=== PATIENT | female | born 1955 | race Caucasian/White ===

== ENCOUNTER 2025-01-14 19:57 | Inpatient (IN) | payer OTHER ==
[~2025-01-14] VITALS: Ht 162.6 cm; Wt 77.3 kg
[2025-01-14 20:30] LABS: BASOPHILS # (AUTO) 0.1 X10'3 (0-0.2); BASOPHILS % (AUTO) 1.3 % (0-1); EOSINOPHILS # (AUTO) 0.1 X10'3 (0-0.9); HEMATOCRIT 36.2 % (35.0-45.0); LYMPHOCYTES # (AUTO) 1.9 X10'3 (1.1-4.8); LYMPHOCYTES % (AUTO) 22.6 % (21-51); MEAN CORPUSCULAR HEMOGLOBIN 28.8 PG (27.0-31.0); MEAN CORPUSCULAR HGB CONC 33.1 g/dL (33.0-36.5); MEAN CORPUSCULAR VOLUME 86.9 FL (78-98); MEAN PLATELET VOLUME 7.1 FL (7.4-10.4); MONOCYTES % (AUTO) 11.9 % (2-12); NEUTROPHILS # (AUTO) 5.3 X10'3 (1.8-7.7); NEUTROPHILS % (AUTO) 63.2 % (42-75); PLATELET COUNT 532 X10'3 (140-440); RED BLOOD COUNT 4.17 X10'6 (4.20-5.60); WHITE BLOOD COUNT 8.4 X10'3 (4.5-11.0)
[2025-01-14 20:40] LABS: ALANINE AMINOTRANSFERASE 53 U/L (12-78); ALBUMIN 2.9 G/DL (3.4-5.0); ALBUMIN/GLOBULIN RATIO 0.6 (1.1-1.5); ALKALINE PHOSPHATASE 90 IU/L (46-116); ANION GAP 8 (8-16); ASPARTATE AMINO TRANSFERASE 33 U/L (10-37); BILIRUBIN,TOTAL 0.5 MG/DL (0.1-1.0); BLOOD UREA NITROGEN 9 MG/DL (7-18); BUN/CREATININE RATIO 10.8 (10.0-20.0); CHLORIDE 101 MMOL/L (99-107); CREATININE 0.83 MG/DL (0.40-0.90); GLUCOSE 111 MG/DL (70-104); LIPASE 46 U/L (16-77); POTASSIUM 3.7 MMOL/L (3.5-5.1); SODIUM 135 MMOL/L (135-145); TOTAL CARBON DIOXIDE 26.2 MMOL/L (24-32); TOTAL PROTEIN 7.4 G/DL (6.4-8.2); eCRCL 55 ML/MIN; eGFR 68 ML/MIN
--- NOTE | 2025-01-14 20:45 | Physician Documentation ---
History of Present Illness Chief Complaint: Abdominal Pain Stated Complaint: GALLBLADDER ISSUES Time Seen by MD: 20:36 OK to notify your PCP?: Yes Source: patient, RN/MD, RN notes reviewed, old records Mode of Arrival: POV Exam Limitations: no limitations HPI 69 year old female presents to the emergency department for complaints of abdominal pain that has been present since 12/24/2024. Patient states that the pain is in the lower left abdominal quadrant. She endorses intermittent nausea and vomiting from 12/24-12/28 as well as avoidance eating. Patient states that her pain is constant and non radiating and states that it is an /10. She states that her stools have been abnormal but denies any black or bloody stools. She denies any drinking. Patient denies any other associated symptoms at this time. Patient denies any other alleviating or exacerbating factors. Medication Reconciliation Allergies: Coded Allergies: No Known Allergies (Unverified , 01/14/25) Miscellaneous Medications Home Med List (No Home Medications), (Reported) Past Medical History Past Medical History: No Pertinent History Past Surgical History: tubal ligation Smoking Status: Never smoker Alcohol Use: Occasionally Drug Use: none Review of Systems All Other Systems at this time: Reviewed and Negative ROS As stated above in the HPI, otherwise all systems are reviewed and negative. Physical Exam Vital Signs: RN Vital Signs have been reviewed: Yes, Temperature: 97.8, Source: Oral, Heart Rate: 98, Respiratory Rate: 15, BP: 145/77, Pulse Oximetry: 97, Weight: 77.270 Pulse Oximetry Reflects: adequate oxygenation Physical Exam General: The patient is well developed, well nourished, nontoxic appearing and is in no acute distress. Skin: [place], warm and dry with no rashes. HEENT: Head was normocephalic and atraumatic. Eyes - pupils equal, round, reactive to light and accommodation. Extraocular movements were intact. Conjunctivae were nonicteric. Ears - bilateral tympanic membranes were normal. The mouth and oropharynx were clear with moist mucous membranes. There were no pharyngeal exudates or erythema. Neck: Supple and nontender. There was no jugular venous distention, lymphadenopathy, thyromegaly or masses. Chest: Clear to auscultation bilaterally without wheezes, rales or rhonchi. No accessory muscle use. No dullness to percussion. Heart: Rate regular and rhythmic. S1, S2. No murmurs. Palpation of the chest wall was normal. No rubs or thrills. Abdomen: Left lower quadrant pain and RUQ pain. Positive bowel sounds. No guarding or rebound. No hepatosplenomegaly or palpable masses. Extremities: No cyanosis, clubbing or edema. The patient moves all extremities. Pulses were equal and symmetric. Neurologic: Cranial nerves II-XII were intact. Sensation was intact to light touch throughout. Motor strength was 5/5 in all four extremities. Deep tendon reflexes were intact in both upper and lower extremities. Psychologic: The patient was oriented to person, place and time. The patient demonstrated appropriate judgement and insight. Progress Progress Note 0102: The case was discussed with Dr. Blank who kindly agreed to admission of the patient. 0106: A message was left with Dr. Lo regarding the patient. Results/Orders Reviewed/noted all lab results: Yes Results/Orders Orders - MAGDI CATHERINE MD Urinalysis, Cult If Indicated (01/14/25 20:02) Completed Orders - MAGDI CATHERINE MD Cbc/Diff (01/14/25 20:02) BMP (01/14/25 20:02) Lipase (01/14/25 20:02) CMP (01/14/25 20:02) Vital Signs 01/14/25 19:58 Temp 97.8 Pulse 98 Resp 15 B/P (MAP) 145/77 Pulse Ox 97 Laboratory Tests Test 01/14/25 20:18 White Blood Count 8.4 Red Blood Count 4.17 L Hemoglobin 12.0 Hematocrit 36.2 Mean Corpuscular Volume 86.9 Mean Corpuscular Hemoglobin 28.8 Mean Corpuscular Hemoglobin Concent 33.1 Red Cell Distribution Width 13.0 Platelet Count 532 H Mean Platelet Volume 7.1 L Neutrophils (%) (Auto) 63.2 Lymphocytes (%) (Auto) 22.6 Monocytes (%) (Auto) 11.9 Eosinophils (%) (Auto) 1.0 Basophils (%) (Auto) 1.3 H Neutrophils # (Auto) 5.3 Lymphocytes # (Auto) 1.9 Monocytes # (Auto) 1.0 H Eosinophils # (Auto) 0.1 Basophils # (Auto) 0.1 CBC Comment Sodium Level 135 Potassium Level 3.7 Chloride Level 101 Carbon Dioxide Level 26.2 Anion Gap 8 Blood Urea Nitrogen 9 Creatinine 0.83 Estimated GFR/1.73 m2 68 BUN/Creatinine Ratio 10.8 Glucose Level 111 H Calcium Level 9.0 Total Bilirubin 0.5 Aspartate Amino Transf (AST/SGOT) 33 Alanine Aminotransferase (ALT/SGPT) 53 Alkaline Phosphatase 90 Total Protein 7.4 Albumin 2.9 L Globulin 4.5 H Albumin/Globulin Ratio 0.6 L Lipase 46 Chemistry Comments Re-Evaluation Re-Evaluation : Re-Evaluation: Worsened Progress Patient was seen and examined. Patient was given reassurance. Laboratory work was obtained. Ultrasound was obtained which did not show any gallstones which was reassuring however cat scan showed some significant abnormalities including the possibility of early so abcd muscle abscess. Patient's kidney is looking very poorly with poor circulation and severe hydro with stranding. Patient was then given Rocephin and vancomycin as well as pain meds and additional fluid boluses for sepsis. Patient has pyelonephritis and obstructive uropathy with a positive UTI as well. Laboratory work WBC shows normal value at 8.4 hemoglobin hematocrit 12 and 36 platelets elevated at 532. Chemistry within normal limits. Lipase also within normal limits. Patient urinalysis shows a specific gravity of 1.005 with leukocyte esterase large with WBCs TNTC and 1+ bacteria. Urology was then consulted with these critical findings. Patient will go to surgery at noon tomorrow she was NPO overnight. Continuous monitoring manager interpretation shows normal sinus rhythm heart rate 90s, no ectopy, normal, my interpretation. Pulse oximetry monitor interpretation shows normal oxygenation 98% room air, normal, my interpretation. EKG/XRAY/CT/US/VASC/MRI CT : Impression Clinical History LEFT SIDED ABD/FLANK PAIN Comparison US ABD on 01/14/2025, 190 images. Technique: All CT scans at this medical facility are performed using dose modulation techniques as appropriate to a performed exam including the following: Automated exposure control was utilized; adjustment of the mA and/or kV according to patient size; and use of iterative reconstruction technique. All CT studies are reported to the Dose Index Registry of the [employer]. Contrast: omni 300 100ml Radiation Dose: CTDI (mGy): 21.75; DLP (mGy-cm): 1159.45 TRUDI FARR, [id number] FINDINGS: LUNG BASES: Unremarkable LIVER: Unremarkable GALLBLADDER: Unremarkable PANCREAS: Unremarkable SPLEEN: Unremarkable ADRENAL GLANDS: 2 cm hypodense left adrenal lesion measuring 2 cm in size KIDNEYS: Atrophic left kidney demonstrates multiple fluid collections as well as multiple calcific foci, associated with extensive left perinephric fat stranding. There is an obstructive 1.1 x 1.4 x 0.9 cm left UVJ stone, causing moderate left hydronephrosis. Adjacent left psoas muscle demonstrates abnormal enhancement with heterogeneous hypodense pockets, suspicious for left psoas abscess. AORTA: Unremarkable INFERIOR VENA CAVA: Unremarkable LYMPH NODES: Unremarkable STOMACH: Unremarkable SMALL INTESTINE: Unremarkable APPENDIX: Not visualized. 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 SUPERFICIAL SOFT TISSUES: Unremarkable OTHER: No other acute findings. IMPRESSION: Atrophic left kidney demonstrates obstructive left UVJ stone causing moderate left hydronephrosis. Left renal constipation compatible with nonobstructive left renal stones. There is likely left pyonephrosis with extensive left perinephric fat stranding as well as adjacent left psoas abscess. 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 This report was electronically signed by Harley Carey MD on 01/15/2025 12:11:07 AM. Electronically Signed by:HARLEY CAREY MD Date & Time: 01/15/2513 Dictated by: HARLEY CAREY MD Dictation date and time: 01/15/2513 Ultrasound : Impression INDICATION: upper abdominal pain TECHNIQUE: Multiple real-time sonographic images of the abdomen were obtained. COMPARISON: None FINDINGS: Parenchymal changes consistent with steatosis The liver measures 17.93 cm. No intrahepatic biliary ductal dilatation is noted. The gallbladder wall measures 0.2 cm and is unremarkable. No gallstones or sludge is seen. The common duct measures 0.38 cm and is unremarkable. No pericholecystic fluid is noted. Negative sonographic Rush's sign. The right kidney measures 11.61 cm. No hydronephrosis. The pancreas is not well visualized due to obscuration from bowel gas. The visualized portions of the IVC and aorta are grossly unremarkable. IMPRESSION: 1. Normal exam of the abdomen. 2. 17.9 cm liver with changes of steatosis 3. Normal gallbladder 4. Normal right kidney Electronically Signed by:DESTINY SANFORD Jr., DO Date & Time: 01/14/252201 Medical Decision Making Additional info obtained from: old records Differential Dx:Considerations: Include: Aortic dissection, Appendicitis, Bowel obstruction, Cholangitis, Cholelithasis, Constipation, Esophagitis, Gastritis/PUD, Gastroenteritis, GI hemorrhage, Hernia, Hepatitis, Inflammatory BD, Ischemic bowel, Ovarian cyst/torsion, Pancreatitis, PID, Urinary tract infection, Urolithiasis, Other Departure Time of Disposition: 01:02 Disposition: 09 ADMITTED INPATIENT Admitted to Inpatient Unit: yes, to hospitalist Admission Level of Care: Med/Surg with Tele Impression: Primary Impression: Pyelonephritis Additional Impressions: UTI (urinary tract infection) Qualified Codes: N30.00 - Acute cystitis without hematuria Obstructive uropathy Intractable renal colic Psoas abscess, left Condition: Fair Referrals: NO PRIMARY CARE PROVIDER (PCP) Education Educated: Patient Educated regarding: diagnosis, need for follow up Critical Care Note Total Time (mins): 30 Critical Care Note The very real possibility of a deterioration of this patient's condition required the highest level of my preparedness for sudden, emergent intervention. I provided critical care services, which included medication orders, frequent reevaluations of the patient's condition and response to treatment, ordering and reviewing test results, and discussing the case with various consultants. Excludes time spent performing separately billable procedures. The critical care time associated with the care of the patient was. 30 minutes or re-evaluating the patient frequently possible sepsis and need for emergent urological surgery. Signature Scribe Signature: Scribed for Magdi Catherine MD by Clint Metzger . 01/14/25 21:21 Attestation: The note accurately reflects work and decisions made by me.Magdi Catherine MD 01/14/25 20:45 MAGDI CATHERINE MD Jan 14, 2025 20:45 CLINT GUZMAN Jan 14, 2025 21:21
[2025-01-14] MEDS: normal saline 1000ML IV soln IVB ONE (20:59)
[2025-01-14] MEDS ORDERED: iohexol 300mg/ml 100ml inj. ONE (21:56)
[2025-01-14 22:03] LABS: BILIRUBIN,URINE NEGATIVE (Neg); CLARITY,URINE SLIGHTLY CLOUDY (Clear); COLOR,URINE YELLOW (Yellow); GLUCOSE, URINE NEGATIVE (Neg); KETONES,URINE NEGATIVE (Neg); LEUKOCYTE ESTERASE ,URINE LARGE (Neg); NITRITES, URINE NEGATIVE (Neg); OCCULT BLOOD,URINE TRACE-INTACT (Neg); PROTEIN,URINE NEGATIVE (Neg); UROBILINOGEN,URINE 0.2 E.U/dL (0.2-1.0)
--- NOTE | 2025-01-14 22:05 | RADIOLOGY REPORT ---
INDICATION: upper abdominal pain TECHNIQUE: Multiple real-time sonographic images of the abdomen were obtained. COMPARISON: None FINDINGS: Parenchymal changes consistent with steatosis The liver measures 17.93 cm. No intrahepatic biliary ductal dilatation is noted. The gallbladder wall measures 0.2 cm and is unremarkable. No gallstones or sludge is seen. The com mon duct measures 0.38 cm and is unremarkable. No pericholecystic fluid is noted. Negative sonographic Rush's sign. The right kidney measures 11.61 cm. No hydronephrosis. The pancreas is not well visualized due to obscuration from bowel gas. The visualized portions of the IVC and aorta are grossly unremarkable. IMPRESSION: 1. Normal exam of the abdomen. 2. 17.9 cm liver with changes of steatosis 3. Normal gallbladder 4. Normal right kidney
[2025-01-14 22:07] LABS: UA COLLECTION TYPE CLN CATCH MIDSTREAM
[2025-01-14 22:08] LABS: BACTERIA,URINE 1+ /HPF (Neg); MUCUS STRANDS NONE SEEN /LPF (Neg); RBC,URINE 0-2 /HPF (0-2); SQUAMOUS EPITHELIAL CELL,UR NONE SEEN /LPF (FEW); TRANSITIONAL EPI CELLS,URINE FEW /HPF; WBC CLUMPS,URINE MODERATE /HPF (NEGATIVE); WBC,URINE TNTC /HPF (0-4)
[2025-01-15] VITALS (14 sets, daily range): BP systolic 91–122; BP diastolic 41–61; PULSE 61–73; RESP 10–21; TEMP 97.1–98; O2SAT 88–99
[2025-01-15] MEDS: HYDROcodone/acetaminophen 10/325mg tab PO ONE ×2 (00:13→00:15)
--- NOTE | 2025-01-15 00:14 | RADIOLOGY REPORT ---
Clinical History LEFT SIDED ABD/FLANK PAIN Comparison US ABD on 01/14/2025, 190 images. Technique: All CT scans at this medical facility are performed using dose modulation techniques as appropriate t o a performed exam including the following: Automated exposure control was utilized; adjustment of th e mA and/or kV according to patient size; and use of iterative reconstruction technique. All CT studies are reported to the Dose Index Registry of the [employer]. Contrast: omni 300 100ml Radiation Dose: CTDI (mGy): 21.75; DLP (mGy-cm): 1159.45 TRUDI FARR, [id number] FINDINGS: LUNG BASES: Unremarkable LIVER: Unremarkable GALLBLADDER: Unremarkable PANCREAS: Unremarkable SPLEEN: Unremarkable ADRENAL GLANDS: 2 cm hypodense left adrenal lesion measuring 2 cm in size KIDNEYS: Atrophic left kidney demonstrates multiple fluid collections as well as multiple calcific fo ci, associated with extensive left perinephric fat stranding. There is an obstructive 1.1 x 1.4 x 0. 9 cm left UVJ stone, causing moderate left hydronephrosis. Adjacent left psoas muscle demonstrates a bnormal enhancement with heterogeneous hypodense pockets, suspicious for left psoas abscess. AORTA: Unremarkable INFERIOR VENA CAVA: Unremarkable LYMPH NODES: Unremarkable STOMACH: Unremarkable SMALL INTESTINE: Unremarkable APPENDIX: Not visualized. COLON: Unremarkable BLADDER: Unremarkable RECTUM: Unremarkable SKELETAL: Degenerative disc disease of lower thoracic spine as well as lumbar spine. SUPERFICIAL SOFT TISSUES: Unremarkable OTHER: No other acute findings. IMPRESSION: Atrophic left kidney demonstrates obstructive left UVJ stone causing moderate left hydronephrosis. L eft renal constipation compatible with nonobstructive left renal stones. There is likely left pyonep hrosis with extensive left perinephric fat stranding as well as adjacent left psoas abscess. 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 This report was electronically signed by Suhail Guajardo MD on 01/15/2025 12:11:07 AM.
[2025-01-15] MEDS ORDERED: NO HOME MEDS (01:19)
[2025-01-15] MEDS: normal saline 1000ML IV soln IV ONE (01:56)
[2025-01-15] MEDS: CefTRIAXone 2gm/D5W 50ml BAG 50 ML IV ONE (01:56)
--- NOTE | 2025-01-15 02:35 | HISTORY AND PHYSICAL ---
History & Physical - Short Providers to Admitted with abdominal pain and a workup shows possible pyelonephritis~ History of Present Illness Chief Complain & History History is mostly obtained from chart and personal communication from the ED physician. Laboratory data reviewed. Radiological investigations reviewed. IMPRESSION: Atrophic left kidney demonstrates obstructive left UVJ stone causing moderate left hydronephrosis. Left renal 'constipation' [error?]compatible with nonobstructive left renal stones. There is likely left pyonephrosis with extensive left perinephric fat stranding as well as adjacent left psoas abscess. Allergies: Coded Allergies: No Known Allergies (Unverified , 01/14/25) Home Medications Home Medications Active Reported No Home Medications (Home Med List) Each Exam Last recorded Lab results: 01/14/25201701/14/252017 Vitals: Vital Signs Date Time Temp Pulse Resp B/P (MAP) Pulse Ox O2 Delivery O2 Flow Rate FiO2 01/15/25 01:18 76 15 122/67 (85) 94 0 01/14/25 19:58 97.8 Advance Care Planning Advanced Care planning: N/A Problem\Assessment\Plan Additional Plan 1. Possible pyelonephritis 2. Sepsis 3.Atrophied left kidney with stone as documented above causing hydronephrosis [Atrophied kidney and hydronephrosis seems like it contradiction] Plan 1. Broad-spectrum antibiotics DOSES- GIVE IN ED 2. Gentle hydration 3. Follow-up cultures 4. Urology involvement required 5. Best course of action would be to get a renal scan MAG3 if no function confirmed left kidney may be considered for left nephrectomy or if there is decent function conservative measures like percutaneous nephrostomy followed by stent placement or a direct DJ stent placement need to be considered KINA MACHADO MD Jan 15, 2025 02:35
[2025-01-15] MEDS ORDERED: acetaminophen 325mg tablet PO PRN (02:40)
[2025-01-15] MEDS ORDERED: magnesium sulf-water 2g/50mL 50 ML IV PRN (02:40)
[2025-01-15] MEDS ORDERED: magnesium sulf-water 4G/100mL 100 ML IV PRN (02:40)
[2025-01-15] MEDS ORDERED: mag hydrox/Alum hydrox/simeth 30ml oral suspension PO PRN (02:40)
[2025-01-15] MEDS ORDERED: potassium Cl 40MEQ/1/2NS 520ml 520 ML IV PRN (02:40)
[2025-01-15] MEDS ORDERED: magnesium hydroxide 30ml (MOM) UD suspension PO PRN (02:40)
[2025-01-15] MEDS ORDERED: ondansetron/PF 4mg/2ml inj IV PRN ×2 (02:40→13:40)
[2025-01-15] MEDS: vancomycin/NS 1 GM ADD-VANTAGE 250 ML IV ONE (02:49)
[2025-01-15 03:20] LABS: MAGNESIUM 1.9 MG/DL (1.5-2.4); POTASSIUM 3.4 MMOL/L (3.5-5.1)
[2025-01-15] MEDS: ringers solution, lacted 1,000 ML IV ONE (04:42)
[2025-01-15] MEDS: enoxaparin 40mg/0.4ml syringe SUBCUT SCH (08:00)
[2025-01-15] MEDS: docusate sod 100mg capsule PO SCH (08:00)
[2025-01-15] MEDS ORDERED: iohexol 300 MG/1 ML 50ml polymer ONE (09:32)
[2025-01-15] MEDS: CefTRIAXone/D5W-Rocephin 1gm 50 ML IV SCH (11:33)
[2025-01-15] MEDS ORDERED: fentaNYL/PF 50MCG/1 ML 2ML syringe ONE (13:35)
[2025-01-15] MEDS ORDERED: dexamethasone sod phosphate 4mg/ml inj. ONE (13:36)
[2025-01-15] MEDS ORDERED: LIDOcaine 2% (20mg/ml) 5ml vial ONE (13:36)
[2025-01-15] MEDS ORDERED: midazolam 1 mg/ML 2ml injection ONE (13:36)
[2025-01-15] MEDS ORDERED: propofol inj 20 ML IV ONE (13:36)
[2025-01-15] MEDS ORDERED: ondansetron/PF 4mg/2ml inj ONE (13:36)
[2025-01-15] MEDS ORDERED: desflurane 240ml liquid inh. IH ONE (13:37)
--- NOTE | 2025-01-15 13:38 | CONSULTATION REPORT ---
History of Present Illness Providers to CC ~ Refering MD: NONE History of Present Illness 69-year-old white female. Left flank pain complaints. CT demonstrates a left atrophic and cystic appearing kidney with dilation secondary to a 7 mm left proximal ureteral stone. Additional nonobstructing intrarenal stones are observed. The patient has urothelial enhancement and likely abscess formation versus extension from the renal pelvis into the left psoas muscle. Allergies: Coded Allergies: No Known Allergies (Unverified , 01/14/25) Home Medications Home Medications Active Reported No Home Medications (Home Med List) Each Past Medical History Medical History Comment No genitourinary history Past Surgical History Surgical History Comment No genitourinary surgeries Past Family History Family History Comment Noncontributory Family History: Patient reports no known family medical history. Past Social History Social History Comment Noncontributory Physical Exam Last Vital Signs Recorded: RN Vital Signs have been reviewed: Yes, Temperature: 98.0, Source: Oral, Heart Rate: 65, Respiratory Rate: 16, BP: 105/54, Pulse Oximetry: 96, Weight: 77.270 General Appearance: alert, no apparent distress EENT: PERRL/EOMI Neck: normal inspection Respiratory: no respiratory distress Chest: no accessory muscle use Cardiovascular: normal peripheral pulses Gastrointestinal: normal palpation Rectal: deferred Back: no CVA tenderness Extremities: normal range of motion Neurologic: oriented x4 Psychiatric: normal mood/affect Skin: normal color, warm/dry Lymphatic: no adenopathy Review of Systems ROS ROS Comments: Negative twelve system review except as otherwise stated Results Diagram Lab Result Diagram: 01/14/25201701/15/25 0251 Assessment/Plan Problems/Diagnosis: (1) Ureteral stone with hydronephrosis Assessment & Plan: I recommended attempt at left retrograde pyelography with ureteral stent placement for management of her pyelonephritis with psoas abscess formation. I described the procedure in detail along with the risks, benefits, and alternatives. She agreed to proceed with such. KARYN HARRELL MD Jan 15, 2025 13:38
[2025-01-15] MEDS ORDERED: morphine 2 MG/ML inj. syringe IV PRN (13:40)
[2025-01-15] MEDS: ringers solution, lacted 1,000 ML IV SCH (13:40)
[2025-01-15] MEDS ORDERED: morphine 4 MG/ML inj SYRINge IV PRN (13:40)
[2025-01-15] MEDS ORDERED: labetalol 20mg/4ml (5mg/ml) syringe IV PRN (13:40)
[2025-01-15] MEDS ORDERED: fentaNYL/PF 50MCG/1 ML 2ML syringe IV PRN ×2 (13:40)
[2025-01-15] MEDS ORDERED: enalaprilat 1.25mg/ml 2ml vial IV PRN (13:40)
--- NOTE | 2025-01-15 14:14 | OPERATIVE REPORT ---
Operative Report Providers to ~ Date of Procedure: Jan 15, 2025 Pre-Operative Diagnosis: Left ureteral stone with obstruction Post-Operative Diagnosis SAME as PRE-Op Procedure Performed 1. Cystourethroscopy. 2. Left retrograde pyelography. 3. Left ureteral stone manipulation. 4. Fluoroscopy with interpretation less than 1 hour. 5. Left 6 [place] x 24 cm ureteral stent placement. Surgeon: Denver Harrell MD Early Childhood Coordinator None. Type of Anesthesia: General Findings: Fluoroscopic findings: Left retrograde pyelography demonstrated complete impaction of a radiopaque stone at the proximal ureter. Final images demonstrate proximal migration of this radio-opaque density and coiling of a ureteral stent within the upper pole of the kidney and within the bladder. Complications None. Estimated Blood Loss: None. Specimen Removed: None. Description of Procedure: The patient was under the effects of general anesthesia and in dorsal lithotomy with her genitals prepped and draped in sterile fashion. With a 21 Danish scope we entered the urethra and observe normal anatomy with orthotopic ureteral orifices. She had inflammatory bulla surrounding the left ureteral orifice. An open-ended catheter was used to cannulate the left orifice and retrograde pyelography demonstrated impaction at the proximal ureter due to a radio-opaque density. A wire was advanced up to the level of the stone but would not move proximal to the stone. The open-ended was advanced up to the level of the stone and used to gently push the stone which then migrated more proximally allowing our wire to enter into the upper tract. The open-ended catheter was offloaded and immediately pus poured out of the ureteral orifice. We then advanced a six Danish by 24 cm ureteral stent into the upper tract over the wire and deployed it within the upper pole of the kidney. Good coiling was observed proximally and distally following deployment. We then removed all instruments from her bladder marking the end of the procedure. X-Ray findings: No Foreign body DENVER HARRELL MD Jan 15, 2025 14:14
--- NOTE | 2025-01-15 18:01 | PROGRESS NOTE- Residence ---
Progress Note - Resident Providers to CC Resident Creating Document: DANIELLE LEBRON RES ~ Antibiotic Timeout Antibiotic Ordered?: Yes Subjective Patient was seen and examined at bedside, patient denied pain as she received pain management in the ED. no hematuria, other complications Objective Vital Signs Date Time Temp Pulse Resp B/P (MAP) Pulse Ox O2 Delivery O2 Flow Rate FiO2 01/15/25 15:10 64 15 103/54 (70) 99 Nasal Cannula 3.0 01/15/25 14:15 97.7 Result Diagram: 01/14/25201701/15/25 0251 Awake , alert, and oriented x4, resting comfortably in the bed, in no acute distress HEENT: Atraumatic, normocephalic, EOMI, anicteric sclera ; pink conjunctiva Neck: Trachea midline. Supple, full range of motion, no JVD Cardiac: Regular rhythm, regular rate with systolic murmurs all over the precordium. Respiratory: Equal breath sounds bilaterally, no tachypnea, no wheezing ,rub or rales, Chest wall is symmetric and without deformity. Gastrointestinal: Abdomen symmetric, non-distended, soft, non-tender, normal bowel sounds x4 quadrant, normoactive, no hepatosplenomegaly Musculoskeletal: No pedal edema, no cyanosis Neurological: Speech is clear, alert, and oriented x 4. No motor or sensory deficit, deep tendon reflexes normal, cerebellar intact. Cranial nerves II-XII intact. Skin: Warm and dry Advance Care Planning Advanced Care plannin - 30 Minutes Assessment Assessment A 69-year-old female presented to the flank pain, renal ultrasound confirmed left obstructing UVJ stone Plan Plan Possible pyelonephritis and sepsis Obstructive left UPJ stone with moderate left hydronephrosis Urinary tract infection Status post cystoscopy with retrograde pyelogram and stent placement CT abdomen demonstrates a left atrophic and cystic appearing kidney with dilation secondary to a 7 mm left proximal ureteral stone. Additional nonobstructing intrarenal stones are observed. The patient has urothelial enhancement and likely abscess formation versus extension from the renal pelvis into the left psoas muscle. UA showed: TNTC WBC and positive leukocyte esterase Urology Dr Lo was consulted, and patient underwent cystoscopy with retrograde pyelogram and stent placement today Continue Rocephin 1 g IV daily Continue NS at 100 cc/hour Management with [place]/morphine Code Status: Full code DVT Prophylaxis: Heparin SQ Analgesia/ Sedation: Morphine/nor Nutrition: Regular diet PT: Ordered Prognosis: Guarded Disposition: Possible discharge in 24/48 hours Danielle Lebron MD Internal Medicine Resident, PGY-1 Date of Service: Jan 15, 2025 Billing Provider: BASILIA DELACRUZ MD,DANIELLE, RES Jan 15, 2025 18:01
[2025-01-16 02:00] VITALS: BP 104/50; PULSE 64; RESP 15; TEMP 97.6; O2SAT 93
[2025-01-16 05:09] LABS: ALANINE AMINOTRANSFERASE 36 U/L (12-78); ALBUMIN 2.1 G/DL (3.4-5.0); ALBUMIN/GLOBULIN RATIO 0.5 (1.1-1.5); ALKALINE PHOSPHATASE 75 IU/L (46-116); ANION GAP 7 (8-16); ASPARTATE AMINO TRANSFERASE 18 U/L (10-37); BASOPHILS % (AUTO) 0.2 % (0-1); BILIRUBIN,TOTAL 0.3 MG/DL (0.1-1.0); BLOOD UREA NITROGEN 7 MG/DL (7-18); BUN/CREATININE RATIO 11.5 (10.0-20.0); CALCIUM 8.7 MG/DL (8.5-10.1); CHLORIDE 109 MMOL/L (99-107); CREATININE 0.61 MG/DL (0.40-0.90); EOSINOPHILS % (AUTO) 0 % (0-6); GLUCOSE 130 MG/DL (70-104); HEMATOCRIT 34.1 % (35.0-45.0); LYMPHOCYTES # (AUTO) 0.7 X10'3 (1.1-4.8); LYMPHOCYTES % (AUTO) 13.2 % (21-51); MAGNESIUM 2.1 MG/DL (1.5-2.4); MEAN CORPUSCULAR HEMOGLOBIN 27.7 PG (27.0-31.0); MEAN CORPUSCULAR HGB CONC 32.2 g/dL (33.0-36.5); MEAN PLATELET VOLUME 7.2 FL (7.4-10.4); MONOCYTES # (AUTO) 0.2 X10'3 (0-0.9); MONOCYTES % (AUTO) 4.9 % (2-12); NEUTROPHILS # (AUTO) 4.1 X10'3 (1.8-7.7); NEUTROPHILS % (AUTO) 81.7 % (42-75); PLATELET COUNT 501 X10'3 (140-440); POTASSIUM 4.1 MMOL/L (3.5-5.1); RED BLOOD COUNT 3.96 X10'6 (4.20-5.60); RED CELL DISTRIBUTION WIDTH 12.7 % (11.5-14.5); SODIUM 141 MMOL/L (135-145); TOTAL CARBON DIOXIDE 24.6 MMOL/L (24-32); TOTAL PROTEIN 6.2 G/DL (6.4-8.2); WHITE BLOOD COUNT 5.1 X10'3 (4.5-11.0); eCRCL 75 ML/MIN; eGFR > 90 ML/MIN
[2025-01-16 08:00] VITALS: RESP 18; O2SAT 93
[2025-01-16] MEDS: normal saline 1000ml 1,000 ML IV SCH (09:07)
[2025-01-16] MEDS ORDERED: CIPR-259 PO (13:57)
--- NOTE | 2025-01-16 21:06 | DISCHARGE SUMMARY-Residence ---
Discharge Summary Providers to CC Resident Creating Document: DANIELLE COELLO RES ~ Discharge Summary Admission Diagnosis: Left ureteral stone with obstruction Hospital Course DATE OF ADMISSION: 01/15/2025 DATE OF DISCHARGE: 01/16/2025 Discharge Diagnosis\Comment: Possible pyelonephritis and sepsis Obstructive left UPJ stone with moderate left hydronephrosis Urinary tract infection Status post cystoscopy with retrograde pyelogram and stent placement Operations\Procedures: Cystoscopy with retrograde pyelogram and stent placement Consultants: Urology Complications: None Condition on DC: Stable New Medications: Ciprofloxacin HCl (Cipro) 500 Mg Tablet 1 TAB PO Q12H for 7 Days, #14 TAB Discontinued Medications: Home Med List (No Home Medications) Each Discharge Summary: HPI as per admitting physician: History is mostly obtained from chart and personal communication from the ED physician. Laboratory data reviewed. Radiological investigations reviewed. Hospital Course: The patient was admitted with signs and symptoms concerning for pyelonephritis and sepsis in the setting of an obstructive left ureteropelvic junction stone with moderate hydronephrosis. Initial workup, including urinalysis, revealed TNTC WBCs and positive leukocyte esterase, supporting a diagnosis of urinary tract infection. CT abdomen demonstrated a 7 mm left proximal ureteral stone causing dilation and hydronephrosis, with findings suspicious for abscess formation or extension of infection into the left psoas muscle. The left kidney appeared atrophic and cystic with additional nonobstructing stones. Given the obstructive uropathy and possible ascending infection, Urology (Dr. Lo) was consulted. The patient underwent cystoscopy with retrograde pyelogram and left ureteral stent placement, which was well tolerated. Post- procedure, the patient remained hemodynamically stable. The patient was managed with IV Rocephin 1 g daily for infection coverage, IV fluids (NS at 100 cc/hr), and pain control with morphine and M[place]rack[place]. Heparin SQ was administered for DVT prophylaxis. The patient tolerated a regular diet, and physical therapy was ordered. The patient's overall prognosis remains guarded due to renal involvement and possible abscess formation. At the time of discharge, the patient was clinically improved and afebrile. Antibiotics were transitioned to oral ciprofloxacin, and outpatient follow-up with Dr. Lo (Urology) was arranged. Physical examination today: Awake , alert, and oriented x4, resting comfortably in the bed, in no acute distress HEENT: Atraumatic, normocephalic, EOMI, anicteric sclera ; pink conjunctiva Neck: Trachea midline. Supple, full range of motion, no JVD Cardiac: Regular rhythm, regular rate with systolic murmurs all over the precordium. Respiratory: Equal breath sounds bilaterally, no tachypnea, no wheezing ,rub or rales, Chest wall is symmetric and without deformity. Gastrointestinal: Abdomen symmetric, non-distended, soft, non-tender, normal bowel sounds x4 quadrant, normoactive, no hepatosplenomegaly Musculoskeletal: No pedal edema, no cyanosis Neurological: Speech is clear, alert, and oriented x 4. No motor or sensory deficit, deep tendon reflexes normal, cerebellar intact. Cranial nerves II-XII intact. Skin: Warm and dry Laboratory Tests Test 01/14/25 21:51 01/15/25 02:51 01/15/25 12:04 01/16/25 04:20 Urine Specimen Description Cln catch midstream Urine Color Yellow Urine Clarity Slightly cloudy Urine pH 6.0 Urine Specific [place] <=1.005 Urine Protein Negative mg/dl Urine Glucose (UA) Negative mg/dl Urine Ketones Negative mg/dl Urine Occult Blood Trace-intact Urine Nitrite Negative Urine Bilirubin Negative Urine Urobilinogen 0.2 E.U/dL Urine Leukocyte Esterase Large Urine RBC 0-2 /HPF Urine WBC Tntc /HPF Urine WBC Clumps Moderate /HPF Urine Squamous Epithelial Cells None seen /LPF Urine Transitional Epithelial Cells Few /HPF Urine Bacteria 1+ /HPF Urine Mucus None seen /LPF Urine Culture Indicated Indicated Volume Urine Centrifuged 10 ml Urine Comment Potassium Level 3.4 MMOL/L 4.1 MMOL/L Magnesium Level 1.9 MG/DL 2.1 MG/DL Lipase 180 U/L Glucometer 96 mg/dl White Blood Count 5.1 X10'3 Red Blood Count 3.96 X10'6 Hemoglobin 11.0 g/dl Hematocrit 34.1 % Mean Corpuscular Volume 86.0 FL Mean Corpuscular Hemoglobin 27.7 PG Mean Corpuscular Hemoglobin Concent 32.2 g/dL Red Cell Distribution Width 12.7 % Platelet Count 501 X10'3 Mean Platelet Volume 7.2 FL Neutrophils (%) (Auto) 81.7 % Lymphocytes (%) (Auto) 13.2 % Monocytes (%) (Auto) 4.9 % Eosinophils (%) (Auto) 0 % Basophils (%) (Auto) 0.2 % Neutrophils # (Auto) 4.1 X10'3 Lymphocytes # (Auto) 0.7 X10'3 Monocytes # (Auto) 0.2 X10'3 Eosinophils # (Auto) 0.0 X10'3 Basophils # (Auto) 0.0 X10'3 CBC Comment Sodium Level 141 MMOL/L Chloride Level 109 MMOL/L Carbon Dioxide Level 24.6 MMOL/L Anion Gap 7 Blood Urea Nitrogen 7 MG/DL Creatinine 0.61 MG/DL Estimated GFR/1.73 m2 > 90 ML/MIN BUN/Creatinine Ratio 11.5 Glucose Level 130 MG/DL Calcium Level 8.7 MG/DL Total Bilirubin 0.3 MG/DL Aspartate Amino Transf (AST/SGOT) 18 U/L Alanine Aminotransferase (ALT/SGPT) 36 U/L Alkaline Phosphatase 75 IU/L Total Protein 6.2 G/DL Albumin 2.1 G/DL Globulin 4.1 G/DL Albumin/Globulin Ratio 0.5 Chemistry Comments Advised on discharge: Needs follow-up with Dr. Lo in outpatient setting and please contact his office for appointment. Increase oral fluid more than 1000 mL per day. Repeat CBC BMP sed rate and procalcitonin in 7-10 days with PCP or with Dr. Lo. *Problems/Diagnosis: (1) Ureteral stone with hydronephrosis Total Time Spent on D/C: > 30 Minutes Date of Service: January 16, 2025 Billing Provider: CHIP JAMES MD Common Visit Codes: 59960-YUD/OBS DISCH DAY >30min DANIELLE COELLO, RES January 16, 2025 21:06 CHIP JAMES MD January 17, 2025 19:43
== END 2025-01-16 16:30 | disposition home or self-care (01) | DRG 853 ==
LOC: ER 19:57 → ED HOLD 01-15 02:45 → SUR 3N 01-15 07:37
PROVIDERS: ADMIT Internal Medicine Critical Care Medicine; ATTEND Family Medicine
PROC: BT1F1ZZ Fluoroscopy of Left Kidney, Ureter and Bladder using Low Osmolar Contrast (ICD-10-PCS; 2025-01-15)
PROC: 0T778DZ Dilation of Left Ureter with Intraluminal Device, Via Natural or Artificial Opening Endoscopic (ICD-10-PCS; principal; 2025-01-15 13:37)
DX: A41.9 Sepsis, unspecified organism (principal); K68.12 Psoas muscle abscess; N13.6 Pyonephrosis; Z98.51 Tubal ligation status
CPT/HCPCS: 96360; 96361; 99285; Z7506; 36415; 74177; 74420; 76000; 76700; 80053; 81001; 82948; 83690; 83735; 84132; 85025; 87081; 87088; A4615; A4618; C1758; C1769; C2617; G0378; J0696; J1100; J1650; J2003; J2250; J2371; J2405; J2704; J3010; J3370; J7030; J7120; Q9967